=== PATIENT | male | born 2000 ===

== ENCOUNTER 2018-03-23 10:54 | Emergency (ER) | payer OTHER ==
[~2018-03-23] VITALS: Ht 170.2 cm; Wt 56.2 kg
== END 2018-03-23 14:17 | disposition home or self-care (01) ==
LOC: ER 10:54
DX: S61.214A Laceration without foreign body of right ring finger without damage to nail, initial encounter (principal); W45.8XXA Other foreign body or object entering through skin, initial encounter; Y93.89 Activity, other specified; Y92.69 Other specified industrial and construction area as the place of occurrence of the external cause; Y99.8 Other external cause status